=== PATIENT | male | born 1965 | race Caucasian/White ===

== ENCOUNTER 2024-02-22 23:54 | Inpatient (IN) | payer SELFPAY ==
[2024-02-23] VITALS (14 sets, daily range): BP systolic 120–173; BP diastolic 62–114; PULSE 64–107; RESP 14–22; TEMP 36.6–37.4; O2SAT 90–97; BMI 26.6
--- NOTE | 2024-02-23 00:21 | ED_ITS ---
HPI - Abdominal Pain 2 General: Chief Complaint: Abdominal Pain Stated Complaint: abd pain Time Seen by Provider: 02/23/24 00:10 History of Present Illness: 58-year-old male presents with umbilical abdominal pain that has gradually worsened as the day has progressed. He states at noon he had sudden onset of severe umbilical pain. The pain made it feel like he needed to have a bowel movement. He states he took a nap and then woke up with significant worsening of the pain. He did have a bowel movement after that. He has been passing flatus. He denies associated nausea or vomiting. Denies fever. He has not taken anything for the pain. No previous abdominal surgeries. He denies dysuria or hematuria. Associated Symptoms: Reports nausea; Denies change in bowel habits, change in stool character, chills, dysuria, fever(s), hematuria and vomiting Related Data Allergies Allergy/AdvReac Type Severity Reaction Status Date / Time No Known Allergies Allergy Verified 02/23/24 00:03 Review of Systems 2 Const: Denies: fever(s), chills or body aches Card: Denies: chest pain Resp: Denies: dyspnea GI: Reports: abdominal pain and nausea; Denies: vomiting, change in bowel habits or change in stool character : Denies: flank pain, difficulty urinating, dysuria, urinary frequency or hematuria Physical Exam 2 Const: COMMON NORMALS: average body habitus, healthy appearing and well nourished GENERAL APPEARANCE: cooperative and in distress (Appears in pain) HENMT: COMMON NORMALS: normocephalic, atraumatic and Normal external nose present HEAD & SCALP: normocephalic and atraumatic NOSE: Normal external nose present Eye: COMMON NORMALS: Equal, round and reactive pupils present and EOMs intact bilaterally PUPIL: Yes Equal, round and reactive pupils present Neck/C-Spine: COMMON NORMALS: full ROM and supple Chest: COMMONS NORMALS: normal inspection of the chest Resp: COMMON NORMALS: normal respiratory effort and clear to auscultation bilaterally EFFORT & INSPECTION: Yes symmetric chest movement A USCULTATION: clear to auscultation bilaterally Cardio: COMMON NORMALS: regular rate and regular rhythm RATE: regular rate RHYTHM: regular rhythm GI: COMMON NORMALS: negative for Soft to palpation and negative for non-tender INSPECTION: Yes visible herniation (Small umbilical hernia which is not reducible due to patient discomfort) AUSCULTATION: Yes Hypoactive bowel sounds present PALPATION: No Soft to palpation, Yes Firmness to palpation present (GI), Yes Tenderness to palpation present (GI), Yes Guarding due to palpation present (GI), Yes Rigid due to palpation (Diffuse, abdomen is distended) Location: other, Yes Hernia present umbilical and Yes Rebound tenderness present PERCUSSION: abnormal to percussion and tympanic to percussion Extremity: NARRATIVE EXTREMITY EXAM: No swelling or tenderness Course 2 ED course: 58-year-old male who presents with gener alized abdominal pain. He had an IV placed and labs obtained. Is been given 1 L normal saline bolus. He has been given 2 doses of IV Dilaudid with minimal improvement of his pain. On his laboratory valuation, white blood cell count is slightly elevated. His electrolytes are normal. Renal function is normal. His glucose is slightly elevated at 135. Urinalysis is negative for UTI. CT abdomen and pelvis shows acute appendicitis without perforation or abscess formation. He also has right iliac artery occlusion with reconstitution lower in the femoral artery region. Patient's been given IV Zosyn. Discussed with general surgery. Plan for admission to the hospital for surgery in the morning. Reevaluation(s): Reevaluation #1: Pain is slightly improved after IV Dilaudid. Patient is informed of his results. Will keep the patient n.p.o. and admit him Vital Signs: Vital signs: Vital Signs Temperature 98.0 F 02/23/24 00:00 Pulse Rate 64 02/23/24 00:00 Respiratory Rate 22 H 02/23/24 00:00 Blood Pressure 155/84 02/23/24 00:00 Pulse Oximetry 97 02/23/24 00:00 Oxygen Delivery Me thod Room Air 02/23/24 00:00 MDM - Abdominal Pain Medical Decision Making 58-year-old male who presents with diffuse abdominal pain, associated abdominal distention. Abdomen is diffusely tender with rebound and guarding. On examination, it is concerning that he has an probable incarcerated umbilical hernia. He will not allow me to try to reduce it. Will try giving him pain medication and see if it is reducible. Will start on IV, give him IV fluids, Zofran for nausea and Dilaudid for pain. Will obtain labs and plan for CT abdomen and pelvis with contrast. Differential includes incarcerated hernia, bowel obstruction, ischemic bowel, perforated viscus, diverticulitis, colitis, constipation. Lab Data Mild leukocytosis with a white blood cell count of 11.56. Glucose is 135. Electrolytes are normal. Renal function is normal. 02/23/24 00:35 02/23/24 00:35 Labs/Radiology: Radiology Impressions Abdomen/Pelvis CT 02/23/24 00:21 IMPRESSION: 1. Acute appendicitis without evidence of rupture or periappendiceal abscess. 2. Thrombosis of the right common, external, and internal iliac arteries. There is reconstitution of distal internal iliac artery branches and of the common femoral artery. ADDENDUM: 02/23/24 0154 THIS REPORT CONTAINS FINDINGS THAT MAY BE CRITICAL TO PATIENT CARE. The findings were verbally communicated via telephone conference with ISAIAH MAJOR at 1:52 AM SINA on 02/23/2024. The findings were acknowledged and understood. Laboratory Results WBC 11.56 10^3/uL (3.29-11.43) H 02/23/24 00:35 RBC 5.26 10^6/uL (3.85-5.65) 02/23/24 00:35 Hgb 16.20 g/dL (11.27-16.99) 02/23/24 00:35 Hct 49.3 % (37-53) 02/23/24 00:35 MCV 93.7 fl (82-101) 02/23/24 00:35 MCH 30.8 pg (27-33) 02/23/24 00:35 MCHC 32.9 g/dL (30-55) 02/23/24 00:35 RDW 13.1 % (12.1-15.1) 02/23/24 00:35 Plt Count 185 10^3/cmm (157-399) 02/23/24 00:35 MPV 11.4 fL (7.4-10.4) H 02/23/24 00:35 Neut % (Auto) 74.2 % 02/23/24 00:35 Lymph % (Auto) 17.6 % 02/23/24 00:35 [place] % (Auto) 5.5 % 02/23/24 00:35 Eos % (Auto) 1.6 % 02/23/24 00:35 Baso % (Auto) 0.7 % 02/23/24 00:35 Neut # (Auto) 8.57 10^3/uL (1.8-7.7) H 02/23/24 00:35 Lymph # (Auto) 2.0 10^3/uL (0.8-4.8) 02/23/24 00:35 [place] # (Auto) 0.6 10^3/uL (0.2-0.9) 02/23/24 00:35 Eos # (Auto) 0.2 10^3/uL (0.0-0.8) 02/23/24 00:35 Baso # (Auto) 0.1 10^3/uL (0.0-0.1) 02/23/24 00:35 Nucleated RBC % (auto) 0 % 02/23/24 00:35 Nucleated RBCs # 0.0 /100WBC 02/23/24 00:35 Sodium 140 mmol/L (136-145) 02/23/24 00:35 Potassium 4.8 mmol/L (3.5-5.1) 02/23/24 00:35 Chloride 104 mmol/L (98-107) 02/23/24 00:35 Carbon Dioxide 27 mmol/L (22-29) 02/23/24 00:35 Anion Gap 13.8 (5-19) 02/23/24 00:35 BUN 15 mg/dL (6-20) 02/23/24 00:35 Creatinine 1.0 mg/dL (0.7-1.2) 02/23/24 00:35 GFR Calculation 76.7 mL/min (90-130) L 02/23/24 00:35 Glucose 135 mg/dL (65-115) H 02/23/24 00:35 Calculated Osmolality 293 mOsm/kg (285-295) 02/23/24 00:35 Calcium 9.4 mg/dL (8.5-10.5) 02/23/24 00:35 Total Bilirubin 0.6 mg/dL (0.15-1.2) 02/23/24 00:35 AST 20 U/L (0-40) 02/23/24 00:35 ALT 24 U/L (0-41) 02/23/24 00:35 Alkaline Phosphatase 65 U/L (40-130) 02/23/24 00:35 Total Protein 7.1 g/dL (6.6-8.7) 02/23/24 00:35 Albumin 4.1 g/dL (3.5-5.2) 02/23/24 00:35 Globulin 3.0 g/dL (1.3-4.6) 02/23/24 00:35 Lipase 44 U/L (13-60) 02/23/24 00:35 Urine Color Yellow (Yellow) 02/23/24 00:45 Urine Appearance Clear (CLEAR) 02/23/24 00:45 Urine pH 6.5 (5-7) 02/23/24 00:45 Ur Specific [place] 1.052 (1.005-1.030) H 02/23/24 00:45 Urine Protein Negative (Negative) 02/23/24 00:45 Urine Glucose (UA) Negative (Normal) 02/23/24 00:45 Urine Ketones Negative (Negative) 02/23/24 00:45 Urine Blood Negative (Negative) 02/23/24 00:45 Urine Nitrate Negative (Negative) 02/23/24 00:45 Urine Bilirubin Negative (Negative) 02/23/24 00:45 Urine Urobilinogen 1.0 mg/dL (Negative) 02/23/24 00:45 Ur Leukocyte Esterase Negative (Negative) 02/23/24 00:45 Urine RBC 0-2 /hpf (0-2) 02/23/24 00:45 Urine WBC 0-5 /hpf (0-5) 02/23/24 00:45 Ur Squamous Epith Cells 0-5 /hpf (0-5) 02/23/24 00:45 Amorphous Sediment Not Reportable 02/23/24 00:45 Urine Bacteria None seen /hpf (NONE) 02/23/24 00:45 Hyaline Casts 0.81 /lpf 02/23/24 00:45 All radiology interpretation(s) finalized by discharge Discharge Plan Discharge Patient Disposition: Admitted As Inpatient Clinical Impression: Acute appendicitis Condition: Stable Coding Level of Care Code ED Psychiatric Nurse for Veronica Jones
--- NOTE | 2024-02-23 00:21 | CTR_ITS ---
PROCEDURE INFORMATION: Exam: CT Abdomen And Pelvis With Contrast Exam date and time: 02/23/2024 12:48 AM Age: 58 years old Clinical indication: Abdominal pain; Generalized; Additional info: Abdominal pain incarcerated umbilical hernia TECHNIQUE: Imaging protocol: Computed tomography of the abdomen and pelvis with contrast. Radiation optimization: All CT scans at this facility use at least one of these dose optimization techniques: automated exposure control; mA and/or kV adjustment per patient size (includes targeted exams where dose is matched to clinical indication); or iterative reconstruction. Contrast material: OMNI 350; Contrast volume: 100 ml; Contrast route: INTRAVENOUS (IV); COMPARISON: No relevant prior studies available. RADIATION DOSE METRICS: Total DLP (mGy-cm): 654.01 FINDINGS: Diaphragm: Small hiatal hernia. Liver: Liver is unremarkable. Gallbladder and biliary ducts: No calcified gallstones, pericholecystic inflammatory change, or biliary ductal dilation. Pancreas: Pancreas is unremarkable. No main duct dilation. Spleen: Spleen is unremarkable. Adrenal glands: No nodules. Kidneys and ureters: No mass. No hydroureteronephrosis. No urinary tract calculi. Stomach and bowel: No bowel obstruction. Appendix: Dilated appendix measuring up to 14 mm with distal periappendiceal stranding. Intraperitoneal space: No free air. No significant fluid collection. Vasculature: Moderate stenosis at the celiac trunk origin. Thrombosis of the right common, external, and internal iliac arteries. There is reconstitution of distal internal iliac branches. There is reconstitution of the distal external iliac artery with patent, but moderately narrowed common femoral artery. Severe aortoiliac atherosclerosis. No aortic aneurysm. Lymph nodes: No enlarged lymph nodes. Urinary bladder: Unremarkable as visualized. Reproductive: Prostatomegaly. Bones/joints: No acute fracture. Degenerative changes. Soft tissues: Rectus diastasis. Small fat containing umbilical hernia. CT/CT abdomen pelvis w con* [id number] IMPRESSION: 1. Acute appendicitis without evidence of rupture or periappendiceal abscess. 2. Thrombosis of the right common, external, and internal iliac arteries. There is reconstitution of distal internal iliac artery branches and of the common femoral artery.
[2024-02-23] MEDS: sodium chloride 0.9% 1,000 ML 999 ML IV (00:23)
[2024-02-23] MEDS: ondansetron 2 mg/ML SDV 2 mL 4 MG IVP (00:25)
[2024-02-23] MEDS: HYDROmorphone 1 mg/mL INJ 1 mL 0.5 MG IVP ×3 (00:25→02:27)
[2024-02-23] MEDS: iohexol 350 mg/mL 500 mL Btl (per mL) IV (00:53)
[2024-02-23 01:05] LABS: Alanine Aminotransferase 24 U/L (0-41); Albumin Level 4.1 g/dL (3.5-5.2); Alkaline Phosphatase 65 U/L (40-130); Aspartate Amino Transferase 20 U/L (0-40); Blood Urea Nitrogen 15 mg/dL (6-20); Calcium 9.4 mg/dL (8.5-10.5); Carbon Dioxide 27 mmol/L (22-29); Chloride 104 mmol/L (98-107); Creatinine Clr Calc Pharmacy 80.2967; Glomerular Filtration Rate 76.7 mL/min (90-130); Glucose 135 mg/dL (65-115); Lipase 44 U/L (13-60); Osmolality Calculated 293 mOsm/kg (285-295); Sodium 140 mmol/L (136-145); Total Bilirubin 0.6 mg/dL (0.15-1.2); Total Protein 7.1 g/dL (6.6-8.7)
[2024-02-23 01:17] LABS: Basophils # 0.1 10^3/uL (0.0-0.1); Basophils % 0.7 %; Eosinophils # 0.2 10^3/uL (0.0-0.8); Eosinophils % 1.6 %; Hematocrit 49.3 % (37-53); Lymphocytes % 17.6 %; Mean Corpuscular HGB Conc 32.9 g/dL (30-55); Mean Corpuscular Hemoglobin 30.8 pg (27-33); Mean Corpuscular Volume 93.7 fl (82-101); Mean Platelet Volume 11.4 fL (7.4-10.4); Monocytes # 0.6 10^3/uL (0.2-0.9); Monocytes % 5.5 %; Neutrophils # 8.57 10^3/uL (1.8-7.7); Neutrophils % 74.2 %; Nucleated Red Blood Cells % 0 %; Platelet Count 185 10^3/cmm (157-399); Red Blood Count 5.26 10^6/uL (3.85-5.65); Red Cell Distribution Width 13.1 % (12.1-15.1); White Blood Count 11.56 10^3/uL (3.29-11.43)
[2024-02-23 01:18] LABS: Anion Gap 13.8 (5-19); Potassium 4.8 mmol/L (3.5-5.1)
[2024-02-23 01:21] LABS: Bilirubin Urine Negative (Negative); Blood Urine Negative (Negative); Glucose Urine UA Negative (Normal); Ketones Urine Negative (Negative); Leukocyte Esterase Urine Negative (Negative); Nitrate Urine Negative (Negative); Protein Urine Negative (Negative); Urine Appearance Clear (CLEAR); Urine Color Yellow (Yellow); pH Urine 6.5 (5-7)
[2024-02-23 01:26] LABS: Add Urine Microscopic? YES; Bacteria Urine None Seen /hpf; Hyaline Casts Urine 0.81 /lpf; RBC Urine 0-2 /hpf (0-2); Squamous Epithelial Cell Urine 0-5 /hpf (0-5); WBC Urine 0-5 /hpf (0-5)
[2024-02-23 01:42] LABS: Specific Gravity, Urine 1.052 (1.005-1.030)
[2024-02-23] MEDS: piperacillin-tazobactam 4.5 GM in sodium chloride 0.9% (plus) 50 ML IV (01:56)
--- NOTE | 2024-02-23 08:40 | P.ANESASSM_ITS ---
Pre-Anesthetic Assessment Height/Weight: Height 5 ft 7 in Weight 178 lb 4.8 oz Temp Pulse Resp BP Pulse Ox O2 Del Method 98.1 F 82 14 120/70 93 Room Air 02/23/24 04:26 02/23/24 04:26 02/23/24 04:26 02/23/24 04:26 02/23/24 04:02/23/24 04:26 Operation Date: 02/23/24 09:30 Proposed Procedures p Laparoscopic Appendectomy(Not Applicable) - Bruce Lewis DO Last intake: Intake Last Liquid Date 02/22/24 Last Liquid Time 19:00 Last Solid Date 02/22/24 Last Solid Time 19:00 Social Alcohol and Tobacco Exam alert, oriented x 3, clear to auscultation bilaterally and regular rate & rhythm Airway Submandibular: within normal limits Cervical ROM: within normal limits Mallampati: Class III Dentition: full Anesthetic Plan ASA status: 3 Anesthesia: General Other: No prior issues with anesthesia NPO since 7 PM last night Patient has elevated WBCs, afebrile currently Appendicitis noted on CT scan Additionally, patient seen to have thrombosis of the right common, external and iliac arteries Patient states that he has had prior blood clots in the past requiring anticoagulation but is unsure if those were venous or arterial Denies any pain in his leg, extremity appears to be of normal color without mottling METs greater than 4 Plan for GETA Medications/Allergies Home Medications Medication Instructions Recorded Confirmed Last Taken Type No Known Home Medications 02/23/24 02/23/24 Unknown History Allergies Allergy/AdvReac Type Severity Reaction Status Date / Time No Known Allergies Allergy Verified 02/23/24 00:03 Data Anesthesia 02/23/24 00:35 02/23/24 00:35 Short CBC 02/23/24 Range/Units 00:35 WBC 11.56 H (3.29-11.43) 10^3/uL Hgb 16.20 (11.27-16.99) g/dL Hct 49.3 (37-53) % MCV 93.7 (82-101) fl Plt Count 185 (157-399) 10^3/cmm Neut % (Auto) 74.2 % Neut # (Auto) 8.57 H (1.8-7.7) 10^3/uL BMP 02/23/24 00:35 Sodium 140 Potassium 4.8 Chloride 104 Carbon Dioxide 27 BUN 15 Creatinine 1.0 Glucose 135 H Calcium 9.4 Liver Function 02/23/24 Range/Units 00:35 Total Bilirubin 0.6 (0.15-1.2) mg/dL AST 20 (0-40) U/L ALT 24 (0-41) U/L Alkaline Phosphatase 65 (40-130) U/L Albumin 4.1 (3.5-5.2) g/dL Urine 02/23/24 Range/Units 00:45 Urine Color Yellow (Yellow) Urine Appearance Clear (CLEAR) Urine pH 6.5 (5-7) Ur Specific [place] 1.052 H (1.005-1.030) Urine Protein Negative (Negative) Urine Glucose (UA) Negative (Normal) Urine Ketones Negative (Negative) Urine Nitrate Negative (Negative) Urine Bilirubin Negative (Negative) Ur Leukocyte Esterase Negative (Negative) Urine RBC 0-2 (0-2) /hpf Urine WBC 0-5 (0-5) /hpf Cardiac Studies: 2 No Data to Display
--- NOTE | 2024-02-23 09:12 | P.HP_ITS ---
Providers/Chief Complaint 2 Admitting Physician: Bruce Lewis DO Chief Complaint: abd pain History of Present Illness Juan Ashby is a 58 year old male who presented to the hospital for 1 day history of periumbilical abdominal pain. Pain came on suddenly and is worsened by palpation. The pain does not radiate. Nothing seems to make the pain better. He denies any nausea, emesis, diarrhea, constipation, hematochezia and/or melena. CT abdomen pelvis shows acute appendicitis. CT also shows thrombus of the right internal and common iliac arteries. He denies any right lower extremity pain or weakness Review of Systems 2 General: Reports: 10 or more systems reviewed and unremarkable except in HPI and below Medications/Allergies Home Medications Medication Instructions Recorded Confirmed Last Taken Type No Known Home Medications 02/23/24 02/23/24 Unknown History Allergies Allergy/AdvReac Type Severity Reaction Status Date / Time No Known Allergies Allergy Verified 02/23/24 00:03 Vitals/I&O/Wt Last Vital Signs Temp 99.3 F 02/23/24 08:40 Pulse 89 02/23/24 08:40 Resp 18 02/23/24 08:40 BP 149/114 02/23/24 08:40 Pulse Ox 93 02/23/24 08:40 O2 Del Method Room Air 02/23/24 08:40 02/22/24 02/23/24 02/23/24 22:59 06:59 14:59 Intake Total 1050 / 1050 Balance 1050 / 1050 Weight last 48 hrs Weight 178 lb 4.8 oz Weight 170 lb Weight 170 lb Physical Exam 2 Narrative: General : Patient is well developed , no acute distress, oriented x3 Head : Normal cephalic, a-traumatic. Ears : Pinnae and external canal are normal. Hearing is normal. Eyes : PERRLA, Sclera and injection are normal. No conjunctival discharge. Nose : Mucous membranes are without erythema. Throat : buccal mucosa is normal, gums are without significant recession or hypertrophy. Lungs : Equal chest rise bilaterally, no use of accessory muscles, trachea is midline. Cor : Rate and rhythm are normal. Abdomen : Soft, diffusely tender, distended, positive Rovsing's no g/r/m Extremities : No edema, no cyanosis or clubbing, right PT and DP pulses are +1, non-tender to palpation of calves. Upper extremities are normal bilaterally. Back : non-tender to palpation, no CVA tenderness. Neuro : CN II - XII intact, Upper and lower extremities have equal and full strength Data 02/23/24 00:35 02/23/24 00:35 A&P Assessment and plan (1) Acute appendicitis: (2) Arterial thrombosis: Plan Laparoscopic Appendectomy The risks and benefits of the procedure, including but not limited to, bleeding, infection, scar, numbness, pain, damage to surrounding structures, conversion to an open procedure, were explained to the patient. He is understanding of the risks and wishes to proceed. If the appendix is found to be perforated, he will need to stay for 2 to 5 days of IV antibiotics. Attestations 2 Medical Necessity Statement*: Patient needs to stay at least 1 more night to start anticoagulation tomorrow for arterial thrombus, waiting 24 hours after surgery. He may need to stay longer if his appendix is perforated Coding Level of Care Code 95998 Diagnoses Acute appendicitis K35.80 Arterial thrombosis I74.9
[2024-02-23] MEDS: piperacillin-tazobactam 3.375 GM in sodium chloride 0.9% (plus) 50 ML IV ×2 (09:40→17:24)
[2024-02-23] MEDS: lidocaine-epi 2% PF 1:200,000 20 mL SDV XX (09:55)
--- NOTE | 2024-02-23 10:44 | P.OP_ITS ---
Operative Report Date of procedure: February 23, 2024 Pre-op diagnosis: Acute appendicitis Post-op diagnosis: Acute suppurative appendicitis Umbilical hernia Procedure done: Laparoscopic appendectomy Primary repair of umbilical hernia Implants: None Specimens removed/disposition: Appendix Surgeon: Bruce Lewis DO Anesthesia: General and Local Estimated blood loss (mL): 5 Complications: None apparent Brief History: This is a very pleasant 58-year-old gentleman who presented to the hospital with 1 day history of abdominal pain. CT abdomen pelvis showed acute appendicitis. Laparoscopic appendectomy is indicated. The risks and benefits were explained and documented. Procedure: Patient was wheeled into the operative room and placed on the OR table in a supine position. Abdomen was inspected prepped and draped in usual sterile f ashion. Time-out was performed and all present were in agreement. A 15 blade scalp was used to make a stab incision in the left upper quadrant and intra- abdominal insufflation was achieved using a Veress needle. A 1 cm umbilical hernia was identified. Hernia at the after localizing the tissue incisions were made and a 12 millimeter trocar was placed into the umbilicus as well as a 5mm in the right lower quadrant and a 5 mm in the left lower quadrant . The appendix was identified and was inflamed and purulent at the tip. There was some thin purulence in the right colic gutter and base of the appendix. I used the laparoscopic ligature to ligate the mesoappendix at the base. I then used 2 PDS endo-loops to snare the base of the appendix. I then used the laparoscopic ligature to ligate the appendix distally. The appendix was removed from the abdomen using an Endo-Catch bag through the umbilical incision. I thoroughly irrigated the abdomen and suctioned the fluid. I examined the abdomen and no further pathology was identified. Hemostasis was noted. I then primarily repaired the umbilical hernia with a Devin-Kirt and 0 Vicryl suture in a figure of 8 fashion X2. All ports removed. Skin was washed and dried. Incisions were closed with 4 O Vicryl in a subcuticular interrupted fashion. Skin glue was applied. Patient tolerated the procedure well.
--- NOTE | 2024-02-23 11:05 | ANE.PACU2 ---
Inpatient post-anesthesia follow up: Vital signs: Temperature 97.6 F Pulse Rate 51 Respiratory Rate 18 Blood Pressure 148/68 Pulse Oximetry 95 Oxygen Delivery Me thod Room Air Oxygen Flow Rate 8 Fraction of Inspir ed Oxygen
--- NOTE | 2024-02-23 12:31 | P.CONIM_ITS ---
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 Internal medicine consulted for incidental findings of arterial thromboses involving the right common, external, and internal iliac arteries. There is CT reconstitution of the distal internal arterial branches and of the common femoral artery. Patient endorses pain in his calfs after walking long distances. Reports rest improves his pain. Patient seen and evaluated on the medical surgical unit. He does endorse a history of prior blood clots. Endorses a deep vein thrombosis following a prolonged cast due to leg injury around [id number]. He states he was treated with warfarin for approximately 1 year. He denies any other known arterial or venous thromboses. Patient notes that he is an active tobacco smoker. Encourage smoking cessation. Offered nicotine replacement, however patient declined. Family history assessed. Patient states he does not know his family medical history. As such, he is not sure whether or not any of his other biological relatives have had arterial or venous thromboses. Review of Systems 2 Narrative: A complete review of systems was obtained and is negative except as stated in HPI. Medications/Allergies Home Medications Medication Instructions Recorded Confirmed Last Taken Type No Known Home Medications 02/23/24 02/23/24 Unknown History Allergies Allergy/AdvReac Type Severity Reaction Status Date / Time No Known Allergies Allergy Verified 02/23/24 00:03 PFSH Acute 2 PFSH: Medical History Tobacco use disorder Deep vein thrombosis Appendicitis Surgical History (Updated 02/23/24 @ 13:17 by Kem Weaver MD) History of hand surgery History of appendectomy Social History Smoking and tobacco/nicotine status: current every day tobacco/nicotine user Alcohol intake: current Substance/Drug Use: never Vitals/I&O/Wt Last Vital Signs Temp 98.3 F 02/23/24 11:50 Pulse 97 02/23/24 11:50 Resp 20 H 02/23/24 11:50 BP 156/78 02/23/24 11:50 Pulse Ox 91 02/23/24 11:50 O2 Del Method Room Air 02/23/24 11:01 O2 Flow Rate 8 02/23/24 10:45 02/22/24 02/23/24 02/23/24 22:59 06:59 14:59 Intake Total 1050 / 1050 50 / 50 Output Total 5 / 5 Balance 1050 / 1050 45 / 45 Weight last 48 hrs Weight 80.876 kg Weight 77.111 kg Weight 77.111 kg Physical Exam 2 Narrative: General: Patient is awake and alert. Head: Normocephalic. Atraumatic. EOM intact. Neck: No JVD. Cardiovascular: RRR. No gallops. No murmurs. No peripheral edema. Lungs: Clear to auscultation, no use of accessory muscles, no crackles or wheezes. Skin: No jaundice. No rashes. Abdomen: Hypoactive bowel sounds. Abdomen soft. Extremities: No cyanosis or clubbing. Musculoskeletal: No swollen or erythematous joints. Neurological: Moves all 4 extremities. No myoclonus. Data 02/23/24 00:35 02/23/24 00:35 A&P Assessment and plan (1) Arterial thrombosis: CT with incidentally found arterial thrombosis of the right common, external, and internal iliac arteries with distal reconstitution Reconstitution suggestive of longstanding pathology Given history of prior suspected provoked DVT, does raise possibility of underlying hypercoagulable state Also within the differential is chronic atherosclerotic disease producing severe stenosis ultimately leading to occlusion through progressive narrowing of the arteries Proceed to check for underlying hypercoagulable state by assessing protein C, protein S, Antithrombin, prothrombin gene mutation evaluation, antiphospholipid antibodies, PT/PTT Check lipid levels Plan to start patient on therapeutic anticoagulation with DOAC 24 hours after surgery if okay with surgeon Will plan for outpatient hematology referral Given radiographic findings and symptoms of claudication, patient would also benefit from outpatient vascular surgery evaluation (2) Acute appendicitis: Per primary (3) Tobacco use disorder: Patient would benefit from cessation, cessation counseling discussed for 3 minutes Declined nicotine replacement therapy Plan Thank you for this consultation. Internal medicine will continue to follow. Consult Attestations 2 Medical Necessity Statement: Per primary Coding Level of Care Code Acute Code for [facility] Diagnoses Arterial thrombosis I74.9 Acute appendicitis K35.80 Tobacco use disorder F17.200
[2024-02-23 14:26] LABS: Chol HDL Ratio 4.39 mg/dL (1.0-5.00); Cholesterol 158 mg/dL (0-200); HDL Cholesterol 36 mg/dL (60-100); LDL Cholesterol Calculated 107 mg/dL (50-129); LDL HDL Ratio 2.97 RATIO (0.00-3.22); Triglycerides 76 mg/dL (0-150)
[2024-02-23 14:37] LABS: INR 1.06 (0.8-1.2)
[2024-02-23 14:40] LABS: D Dimer 2.65 ug/mLFEU (0-0.59)
[2024-02-24] MEDS: piperacillin-tazobactam 3.375 GM in sodium chloride 0.9% (plus) 50 ML IV ×2 (01:03→08:56)
[2024-02-24] MEDS: HYDROcodone-acetaminophen 7.5-325 mg Tablet 1 TAB PO (01:06)
[2024-02-24 04:00] VITALS: BP 145/63; PULSE 55; RESP 15; TEMP 36.6; O2SAT 93
[2024-02-24 07:58] VITALS: BP 148/68; PULSE 51; RESP 18; TEMP 36.4; O2SAT 95
--- NOTE | 2024-02-24 08:54 | P.PN_ITS ---
Subjective 2 Subjective: Patient awake and alert. He is ambulatory around the room. He denies any significant abdominal pains. We again discussed his incidentally found arterial thromboses concerning for blood clot with possibly superimposed atherosclerotic disease. We discussed referral to both hematology and vascular surgery clinic. His hypercoagulable workup is pending and will likely not return for about a week. He is agreeable to see hematology clinic to follow-up these results. He is also agreeable to vascular surgery referral to [facility], no preference. He is agreeable to [facility] for further evaluation given he does have symptoms consistent with claudication in his right leg. He may benefit from revascularization eventually. Otherwise he denies other new complaints. Anticipating possible discharge today from his general surgeon. Medications: Reviewed: Yes Vitals/I&O/Wt Last Vital Signs Temp 97.6 F 02/24/24 07:58 Pulse 51 L 02/24/24 07:58 Resp 18 02/24/24 07:58 BP 148/68 02/24/24 07:58 Pulse Ox 95 02/24/24 07:58 O2 Del Method Room Air 02/24/24 07:58 O2 Flow Rate 8 02/23/24 10:45 02/23/24 02/24/24 02/24/24 22:59 06:59 14:59 Intake Total 290 / 460 50 / 510 480 / 480 Balance 290 / 455 50 / 505 480 / 480 Weight last 48 hrs Weight 78.29 kg Weight 80.876 kg Weight 77.111 kg Weight 77.111 kg Physical Exam 2 Narrative: General: Patient is awake and alert. Pleasant. Ambulatory. Head: Normocephalic. Atraumatic. EOM intact. Neck: No JVD. Cardiovascular: RRR. No gallops. No murmurs. No peripheral edema. Lungs: Clear to auscultation, no use of accessory muscles, no crackles or wheezes. Skin: No jaundice. No rashes. Abdomen: Hypoactive bowel sounds. Abdomen soft. Extremities: No cyanosis or clubbing. Musculoskeletal: No swollen or erythematous joints. Neurological: Moves all 4 extremities. No myoclonus. Data 02/23/24 00:35 02/23/24 00:35 A&P Assessment and plan (1) Arterial thrombosis: Recommend systemic anticoagulation with apixaban Prescription for starter pack for apixaban sent to pharmacy Prescription for aspirin enteric-coated 81 mg daily sent to pharmacy ASCVD risk score of 15.9%, recommending moderate to high intensity statin, atorvastatin prescription sent to pharmacy Discussed with nursing, will provide coupon for first month of apixaban Amb[place] [facility] [place] to follow-up hypercoagulable workup requested Ambulatory referral to [facility] vascular surgery clinic requested to evaluate for peripheral arterial disease management (2) Acute appendicitis: Per primary (3) Tobacco use disorder: Would benefit from cessation Plan Thank you for this consultation. Attestations 2 Medical Necessity Statement*: Per primary. Coding Level of Care Code Acute Code for [facility] Fwd Diagnoses Arterial thrombosis I74.9 Acute appendicitis K35.80 Tobacco use disorder F17.200
--- NOTE | 2024-02-24 09:42 | P.DS_ITS ---
Discharge Providers Date of Admission: 02/23/24 02:37 Date of Discharge: February 24, 2024 Attending Provider at Admission: Bruce Lewis DO Attending Provider at Discharge: Bruce Lewis DO Consults: Internal medicine Diagnoses at Discharge Discharge Diagnosis (1) Arterial thrombosis: Status: Acute (2) Acute appendicitis: Status: Acute (3) Tobacco use disorder: Status: Acute Reason for Visit Reason for Visit: abd pain Hospital Course Hospital Course This is a very pleasant 58-year-old gentleman who presented to the hospital with abdominal pain. He was diagnosed with acute appendicitis and a thrombus of his right iliac artery. He underwent laparoscopic appendectomy as well as primary repair of umbilical hernia and did well postoperatively. 24 hours after surgery he was started on Eliquis. He was discharged home in good condition with follow-up with myself and hematology Physical Exam Narrative: General : Patient is well developed , no acute distress, oriented x3 Head : Normal cephalic, a-traumatic. Ears : Pinnae and external canal are normal. Hearing is normal. Eyes : PERRLA, Sclera and injection are normal. No conjunctival discharge. Nose : Mucous membranes are without erythema. Throat : buccal mucosa is normal, gums are without significant recession or hypertrophy. Lungs : Equal chest rise bilaterally, no use of accessory muscles, trachea is midline. Cor : Rate and rhythm are normal. Abdomen : Soft, ND, appropriately tender no g/r/m Extremities : No edema, no cyanosis or clubbing, dorsalis pedis pulses are present bilaterally, non-tender to palpation of calves. Upper extremities are normal bilaterally. Back : non-tender to palpation, no CVA tenderness. Neuro : CN II - XII intact, Upper and lower extremities have equal and full strength Discharge Data Studies Completed and Pending Completed Studies During Hospitalization Category Date Time Status CT abdomen pelvis w con* [id number] Stat Cat Scan 02/23/24 00:21 Completed Pending at discharge Category Date Time Status Antiphospholipid Antibody [place] Routine Lab 02/23/24 13:59 Received Antithrombin III Activity Routine Lab 02/23/24 13:59 Received PROTEIN C, ACTIVITY Routine Lab 02/23/24 13:59 Received PROTEIN S, ACTIVITY Routine Lab 02/23/24 13:59 Received PROTHROMBIN GENE [PROTHROMBIN (FACTOR II) [id number]] Lab 02/23/24 13:59 Received Routine Pathology: Surgical [PTH] Routine Pth 02/23/24 10:24 Ordered Radiology Impressions Abdomen/Pelvis CT 02/23/24 00:21 IMPRESSION: 1. Acute appendicitis without evidence of rupture or periappendiceal abscess. 2. Thrombosis of the right common, external, and internal iliac arteries. There is reconstitution of distal internal iliac artery branches and of the common femoral artery. ADDENDUM: 02/23/24 0154 THIS REPORT CONTAINS FINDINGS THAT MAY BE CRITICAL TO PATIENT CARE. The findings were verbally communicated via telephone conference with ISAIAH MAJOR at 1:52 AM CDT on 02/23/2024. The findings were acknowledged and understood. Laboratory Results WBC 11.56 10^3/uL (3.29-11.43) H 02/23/24 00:35 RBC 5.26 10^6/uL (3.85-5.65) 02/23/24 00:35 Hgb 16.20 g/dL (11.27-16.99) 02/23/24 00:35 Hct 49.3 % (37-53) 02/23/24 00:35 MCV 93.7 fl (82-101) 02/23/24 00:35 MCH 30.8 pg (27-33) 02/23/24 00:35 MCHC 32.9 g/dL (30-55) 02/23/24 00:35 RDW 13.1 % (12.1-15.1) 02/23/24 00:35 Plt Count 185 10^3/cmm (157-399) 02/23/24 00:35 MPV 11.4 fL (7.4-10.4) H 02/23/24 00:35 Neut % (Auto) 74.2 % 02/23/24 00:35 Lymph % (Auto) 17.6 % 02/23/24 00:35 [place] % (Auto) 5.5 % 02/23/24 00:35 Eos % (Auto) 1.6 % 02/23/24 00:35 Baso % (Auto) 0.7 % 02/23/24 00:35 Neut # (Auto) 8.57 10^3/uL (1.8-7.7) H 02/23/24 00:35 Lymph # (Auto) 2.0 10^3/uL (0.8-4.8) 02/23/24 00:35 [place] # (Auto) 0.6 10^3/uL (0.2-0.9) 02/23/24 00:35 Eos # (Auto) 0.2 10^3/uL (0.0-0.8) 02/23/24 00:35 Baso # (Auto) 0.1 10^3/uL (0.0-0.1) 02/23/24 00:35 Nucleated RBC % (auto) 0 % 02/23/24 00:35 Nucleated RBCs # 0.0 /100WBC 02/23/24 00:35 PT 14.10 SECONDS (12.1-14.9) 02/23/24 13:59 INR 1.06 (0.8-1.2) 02/23/24 13:59 APTT 28.0 SECONDS (23.9-36.7) 02/23/24 13:59 D-Dimer 2.65 ug/mLFEU (0-0.59) H 02/23/24 13:59 Sodium 140 mmol/L (136-145) 02/23/24 00:35 Potassium 4.8 mmol/L (3.5-5.1) 02/23/24 00:35 Chloride 104 mmol/L (98-107) 02/23/24 00:35 Carbon Dioxide 27 mmol/L (22-29) 02/23/24 00:35 Anion Gap 13.8 (5-19) 02/23/24 00:35 BUN 15 mg/dL (6-20) 02/23/24 00:35 Creatinine 1.0 mg/dL (0.7-1.2) 02/23/24 00:35 GFR Calculation 76.7 mL/min (90-130) L 02/23/24 00:35 Glucose 135 mg/dL (65-115) H 02/23/24 00:35 Calculated Osmolality 293 mOsm/kg (285-295) 02/23/24 00:35 Calcium 9.4 mg/dL (8.5-10.5) 02/23/24 00:35 Total Bilirubin 0.6 mg/dL (0.15-1.2) 02/23/24 00:35 AST 20 U/L (0-40) 02/23/24 00:35 ALT 24 U/L (0-41) 02/23/24 00:35 Alkaline Phosphatase 65 U/L (40-130) 02/23/24 00:35 Total Protein 7.1 g/dL (6.6-8.7) 02/23/24 00:35 Albumin 4.1 g/dL (3.5-5.2) 02/23/24 00:35 Globulin 3.0 g/dL (1.3-4.6) 02/23/24 00:35 Triglycerides 76 mg/dL (0-150) 02/23/24 13:59 Cholesterol 158 mg/dL (0-200) 02/23/24 13:59 LDL Cholesterol, Calc 107 mg/dL (50-129) 02/23/24 13:59 HDL Cholesterol 36 mg/dL (60-100) L 02/23/24 13:59 LDL/HDL Ratio 2.97 RATIO (0.00-3.22) 02/23/24 13:59 Cholesterol/HDL Ratio 4.39 mg/dL (1.0-5.00) 02/23/24 13:59 Lipase 44 U/L (13-60) 02/23/24 00:35 Urine Color Yellow (Yellow) 02/23/24 00:45 Urine Appearance Clear (CLEAR) 02/23/24 00:45 Urine pH 6.5 (5-7) 02/23/24 00:45 Ur Specific [place] 1.052 (1.005-1.030) H 02/23/24 00:45 Urine Protein Negative (Negative) 02/23/24 00:45 Urine Glucose (UA) Negative (Normal) 02/23/24 00:45 Urine Ketones Negative (Negative) 02/23/24 00:45 Urine Blood Negative (Negative) 02/23/24 00:45 Urine Nitrate Negative (Negative) 02/23/24 00:45 Urine Bilirubin Negative (Negative) 02/23/24 00:45 Urine Urobilinogen 1.0 mg/dL (Negative) 02/23/24 00:45 Ur Leukocyte Esterase Negative (Negative) 02/23/24 00:45 Urine RBC 0-2 /hpf (0-2) 02/23/24 00:45 Urine WBC 0-5 /hpf (0-5) 02/23/24 00:45 Ur Squamous Epith Cells 0-5 /hpf (0-5) 02/23/24 00:45 Amorphous Sediment Not Reportable 02/23/24 00:45 Urine Bacteria None seen /hpf (NONE) 02/23/24 00:45 Hyaline Casts 0.81 /lpf 02/23/24 00:45 Procedures Performed Laparoscopic appendectomy Vitals Last Vital Signs Temp 97.6 F 02/24/24 07:58 Pulse 51 L 02/24/24 07:58 Resp 18 02/24/24 07:58 BP 148/68 02/24/24 07:58 Pulse Ox 95 02/24/24 07:58 O2 Del Method Room Air 02/24/24 07:58 O2 Flow Rate 8 02/23/24 10:45 Discharge Plan Discharge Patient Disposition: Home Condition: Stable Prescriptions: New apixaban 5 mg (74 tabs) tablets,dose pack See Rx Instructions .ROUTE .COMPLEX Qty: 74 0RF Rx Instructions: orally per package directions Adult Aspirin Regimen 81 mg tablet,delayed release (DR/EC) 81 mg PO DAILY Qty: 30 0RF atorvastatin 40 mg tablet 40 mg PO QPM Qty: 30 0RF hydrocodone-acetaminophen 7.5-325 mg tablet 1 tab PO Q6H PRN (Reason: pain) Qty: 20 0RF Colace 100 mg capsule 100 mg PO BID Qty: 14 0RF Miralax 17 gram/dose powder 17 g PO DAILY 7 Days Qty: 119 0RF Discharge Orders: Discharge Order (Routine); Ordered 02/24/24 Ordered By: Bruce Lewis Referrals: [facility] [Provider Group] - 2 weeks (Ambulatory referral to hematology clinic for incidentally found arterial thromboses. Evaluate for hypercoagulable disorder. Hypercoagulable workup is pending at time of referral.) [facility] [Outside] - 3 weeks (Ambulatory referral to vascular surgery to evaluate and treat right sided common, external, and internal iliac thrombosis with claudication symptoms.) Bruce Lewis DO [Physician] - 2 weeks Discharge Diet: Advance as tolerated Discharge Activity: Resume usual activity Patient Instructions: Acute Wound Care (DC), Opioid Safety, Post Anesthesia Care Activity Restrictions/Additional Instructions: Do not soak incisions underwater for 2 weeks. Shower regularly. Discharge Attestations Time Spent in Discharge Care*: less than 30 min Quality Metrics Clinical Quality Measures [ No reported AMI, CVA or VTE this stay] Coding Level of Care Code Acute Code for [facility] Fwd Diagnoses Arterial thrombosis I74.9 Acute appendicitis K35.80 Tobacco use disorder F17.200
[2024-02-24 11:36] VITALS: BP 137/75; PULSE 64; RESP 18; TEMP 36.4; O2SAT 91
== END 2024-02-24 13:15 | disposition home or self-care (01) | DRG 398 ==
LOC: ER 02-23 02:02 → MEDSURG 02-23 02:38
PROVIDERS: Internal Medicine; Admitting Provider Surgery; Emergency Provider Emergency Medicine; Visit Provider Surgery
PROC: 0DTJ4ZZ Resection of Appendix, Percutaneous Endoscopic Approach (ICD-10-PCS; CPT 44970; principal; 2024-02-23 09:20)
DX: K35.80 Unspecified acute appendicitis (principal); I74.5 Embolism and thrombosis of iliac artery; K42.9 Umbilical hernia without obstruction or gangrene; F17.200 Nicotine dependence, unspecified, uncomplicated
CPT/HCPCS: 36415; 74177; 80053; 80061; 81001; 83516; 83690; 85025; 85210; 85300; 85303; 85306; 85378; 85610; 85730; 86146; 86147; 88304; J1100; J1170; J2250; J2405; J2543; J2704; J2710; J3010; J3490; J7030

== ENCOUNTER 2024-03-19 15:22 | Oncology outpatient (recurring) (ONCR) | payer SELFPAY | END 2024-03-27 23:59 | disposition home or self-care (01) | PROVIDERS: Visit Provider Internal Medicine Hematology & Oncology | DX: I82.491 Acute embolism and thrombosis of other specified deep vein of right lower extremity (principal) ==

== ENCOUNTER 2024-07-23 12:44 | Oncology outpatient (recurring) (ONCR) | payer OTHER, SELFPAY ==
[2024-07-23 13:11] LABS: Basophils # 0.1 10^3/uL (0.0-0.1); Basophils % 1.3 %; Eosinophils # 0.3 10^3/uL (0.0-0.8); Eosinophils % 3.7 %; Hematocrit 46.3 % (37-53); Lymphocytes # 1.9 10^3/uL (0.8-4.8); Lymphocytes % 24.3 %; Mean Corpuscular HGB Conc 33.5 g/dL (30-55); Mean Corpuscular Hemoglobin 30.8 pg (27-33); Mean Corpuscular Volume 91.9 fl (82-101); Monocytes # 0.6 10^3/uL (0.2-0.9); Monocytes % 7.8 %; Neutrophils # 4.95 10^3/uL (1.8-7.7); Neutrophils % 62.5 %; Nucleated Red Blood Cells % 0 %; Platelet Count 184 10^3/cmm (157-399); Red Blood Count 5.04 10^6/uL (3.85-5.65); Red Cell Distribution Width 12.9 % (12.1-15.1); White Blood Count 7.91 10^3/uL (3.29-11.43)
[2024-07-23 13:27] LABS: D Dimer 0.49 ug/mLFEU (0-0.59)
[2024-07-23 13:30] LABS: Alanine Aminotransferase 36 U/L (0-41); Albumin Level 4.1 g/dL (3.5-5.2); Alkaline Phosphatase 72 U/L (40-130); Anion Gap 11.9 (5-19); Aspartate Amino Transferase 24 U/L (0-40); Blood Urea Nitrogen 17 mg/dL (6-20); Calcium 9.1 mg/dL (8.5-10.5); Carbon Dioxide 28 mmol/L (22-29); Chloride 103 mmol/L (98-107); Globulin 2.8 g/dL (1.3-4.6); Glomerular Filtration Rate 86.4 mL/min (90-130); Glucose 113 mg/dL (65-115); Lactate Dehydrogenase 172 U/L (135-225); Osmolality Calculated 290 mOsm/kg (285-295); Potassium 3.9 mmol/L (3.5-5.1); Sodium 139 mmol/L (136-145); Total Bilirubin 0.7 mg/dL (0.15-1.2); Total Protein 6.9 g/dL (6.6-8.7)
== END 2024-07-25 23:59 | disposition home or self-care (01) ==
PROVIDERS: PCP Nurse Practitioner Family; Visit Provider Internal Medicine Hematology & Oncology
DX: I82.491 Acute embolism and thrombosis of other specified deep vein of right lower extremity (principal)
CPT/HCPCS: 36415; 80053; 83615; 85025; 85378

== ENCOUNTER 2024-10-23 10:30 | Oncology outpatient (recurring) (ONCR) | payer OTHER, SELFPAY ==
[2024-10-22 14:47] LABS: Basophils # 0.1 10^3/uL (0.0-0.1); Basophils % 1.1 %; Eosinophils # 0.2 10^3/uL (0.0-0.8); Eosinophils % 3.3 %; Lymphocytes # 1.8 10^3/uL (0.8-4.8); Lymphocytes % 25.5 %; Mean Corpuscular HGB Conc 33.3 g/dL (30-55); Mean Corpuscular Hemoglobin 31.3 pg (27-33); Mean Corpuscular Volume 94.2 fl (82-101); Monocytes # 0.5 10^3/uL (0.2-0.9); Monocytes % 6.6 %; Neutrophils # 4.45 10^3/uL (1.8-7.7); Neutrophils % 62.9 %; Nucleated Red Blood Cells % 0 %; Platelet Count 194 10^3/cmm (157-399); Red Cell Distribution Width 13.5 % (12.1-15.1); White Blood Count 7.07 10^3/uL (3.29-11.43)
[2024-10-22 14:52] LABS: Erythrocyte Sedimentation Rate 15 mm/hr (0-10)
[2024-10-22 15:06] LABS: Alanine Aminotransferase 33 U/L (0-41); Alkaline Phosphatase 63 U/L (40-130); Anion Gap 13.9 (5-19); Aspartate Amino Transferase 21 U/L (0-40); Blood Urea Nitrogen 14 mg/dL (6-20); Calcium 9.9 mg/dL (8.5-10.5); Carbon Dioxide 28 mmol/L (22-29); Chloride 100 mmol/L (98-107); Globulin 2.9 g/dL (1.3-4.6); Glomerular Filtration Rate 68.5 mL/min (90-130); Glucose 107 mg/dL (65-115); Lactate Dehydrogenase 141 U/L (135-225); Osmolality Calculated 287 mOsm/kg (285-295); Potassium 3.9 mmol/L (3.5-5.1); Sodium 138 mmol/L (136-145); Total Bilirubin 0.8 mg/dL (0.15-1.2); Total Protein 6.9 g/dL (6.6-8.7)
[2024-10-22 15:19] LABS: D Dimer 0.34 ug/mLFEU (0-0.59)
[2024-10-23 07:49] LABS: PROTEIN, TOTAL 6.9 g/dL (6.1-8.1)
[2024-10-23 13:18] LABS: Leukemia Profile (BBPL) See Report
[2024-10-24 21:54] LABS: PTT-LA-Screen 46 sec (< OR = 40)
[2024-10-25] LABS: Lupus DRVVT Confirm NEGATIVE (NEGATIVE); Lupus Hexagonal Phas Confirm NEGATIVE (NEGATIVE)
[2024-10-26 15:05] LABS: Immunofixation Serum Normal pattern.
[2024-10-28 15:34] LABS: ALBUMIN 4.2 g/dL (3.8-4.8); ALPHA 1 GLOBULIN 0.3 g/dL (0.2-0.3); ALPHA 2 GLOBULIN 0.8 g/dL (0.5-0.9); BETA 1 GLOBULIN 0.5 g/dL (0.4-0.6); BETA 2 GLOBULIN 0.5 g/dL (0.2-0.5); GAMMA GLOBULIN 0.7 g/dL (0.8-1.7)
== END 2024-10-25 23:59 | disposition home or self-care (01) ==
PROVIDERS: PCP Nurse Practitioner Family; Visit Provider Internal Medicine
DX: Z53.9 Procedure and treatment not carried out, unspecified reason (principal); I82.491 Acute embolism and thrombosis of other specified deep vein of right lower extremity; I74.9 Embolism and thrombosis of unspecified artery
CPT/HCPCS: 36415; 80053; 83615; 84155; 84165; 85025; 85378; 85613; 85651; 85730; 86140; 86334; 88184; 88185

== ENCOUNTER 2024-10-29 12:57 | Oncology outpatient (recurring) (ONCR) | payer OTHER, SELFPAY ==
[2024-11-02 00:10] LABS: PROTEIN C, ACTIVITY 74 % normal (70-180)
[2024-11-03 14:50] LABS: Protein C Antigen 106 % normal (70-140)
[2024-11-05 05:42] LABS: PNH Clinical Type NOT PROVIDED; PNH Number of Markers 8; PNH Specimen Type PERIPHERAL BLOOD; PNH Viability % 94 %
== END 2024-11-24 23:59 | disposition home or self-care (01) ==
PROVIDERS: PCP Nurse Practitioner Family; Visit Provider Internal Medicine
DX: I82.491 Acute embolism and thrombosis of other specified deep vein of right lower extremity (principal)
CPT/HCPCS: 36415; 85302; 85303; 88184; 88185

== ENCOUNTER 2024-11-06 14:08 | Outpatient (CLI) | payer OTHER, SELFPAY ==
--- NOTE | 2024-11-06 14:19 | XR_ITS ---
WS: [id number] AP pelvis, both hips 2 views, 11/06/2024 Clinical Data: M25.50 - Pain in unspecified joint Comparison: None. Findings: There are no fractures or dislocations. The pubic symphysis and SI joints are normal. The hips show no erosion, sclerosis, narrowing, fragmentation of the femoral heads or loss of normal spherical shape. The soft tissues are normal. XR/XR hip BI 3-4V wo/w pel [id number] Impression: Negative pelvis and both hips.
== END 2024-11-06 14:09 | disposition home or self-care (01) ==
PROVIDERS: PCP Nurse Practitioner Family; Visit Provider Nurse Practitioner Family
DX: M25.50 Pain in unspecified joint (principal); M25.551 Pain in right hip; M25.552 Pain in left hip
CPT/HCPCS: 73522

== ENCOUNTER 2025-02-11 15:55 | Oncology outpatient (recurring) (ONCR) | payer OTHER, SELFPAY ==
[2025-02-04 12:07] LABS: Hematocrit 44.6 % (37-53); Hemoglobin 14.70 g/dL (11.27-16.99); Mean Corpuscular HGB Conc 33.0 g/dL (30-55); Mean Corpuscular Hemoglobin 30.5 pg (27-33); Mean Corpuscular Volume 92.5 fl (82-101); Nucleated Red Blood Cells % 0 %; Platelet Count 176 10^3/cmm (157-399); Red Blood Count 4.82 10^6/uL (3.85-5.65); White Blood Count 7.31 10^3/uL (3.29-11.43)
[2025-02-04 12:25] LABS: Alanine Aminotransferase 32 U/L (0-41); Albumin Level 4.1 g/dL (3.5-5.2); Alkaline Phosphatase 59 U/L (40-130); Anion Gap 13.0 (5-19); Aspartate Amino Transferase 22 U/L (0-40); Blood Urea Nitrogen 16 mg/dL (6-20); Calcium 9.3 mg/dL (8.5-10.5); Carbon Dioxide 28 mmol/L (22-29); Chloride 100 mmol/L (98-107); Globulin 2.9 g/dL (1.3-4.6); Glucose 106 mg/dL (65-115); Osmolality Calculated 286 mOsm/kg (285-295); Potassium 4.0 mmol/L (3.5-5.1); Sodium 137 mmol/L (136-145); Total Protein 7.0 g/dL (6.6-8.7)
[2025-02-07 20:01] LABS: PROTEIN C, ACTIVITY 91 % normal (70-180)
== END 2025-02-24 23:59 | disposition home or self-care (01) ==
PROVIDERS: PCP Nurse Practitioner Family; Visit Provider Internal Medicine
DX: Z53.9 Procedure and treatment not carried out, unspecified reason (principal)
CPT/HCPCS: 36415; 80053; 83615; 85025; 85303

== ENCOUNTER 2025-05-27 14:35 | Oncology outpatient (recurring) (ONCR) | payer OTHER, SELFPAY ==
[2025-05-19 14:58] LABS: Hematocrit 44.7 % (37-53); Hemoglobin 14.70 g/dL (11.27-16.99); Mean Corpuscular HGB Conc 32.9 g/dL (30-55); Mean Corpuscular Hemoglobin 30.5 pg (27-33); Mean Corpuscular Volume 92.7 fl (82-101); Nucleated Red Blood Cells % 0 %; Platelet Count 190 10^3/cmm (157-399); Red Blood Count 4.82 10^6/uL (3.85-5.65); White Blood Count 9.28 10^3/uL (3.29-11.43)
[2025-05-19 15:20] LABS: Alanine Aminotransferase 24 U/L (0-41); Albumin Level 4.4 g/dL (3.5-5.2); Alkaline Phosphatase 60 U/L (40-130); Anion Gap 14.3 (5-19); Aspartate Amino Transferase 18 U/L (0-40); Blood Urea Nitrogen 12 mg/dL (8-23); Calcium 9.4 mg/dL (8.5-10.5); Carbon Dioxide 27 mmol/L (22-29); Chloride 102 mmol/L (98-107); Globulin 2.6 g/dL (1.3-4.6); Glucose 101 mg/dL (65-115); Osmolality Calculated 288 mOsm/kg (285-295); Potassium 4.3 mmol/L (3.5-5.1); Sodium 139 mmol/L (136-145); Total Protein 7.0 g/dL (6.6-8.7)
== END 2025-05-27 23:59 | disposition home or self-care (01) ==
PROVIDERS: Nurse Practitioner; PCP Nurse Practitioner Family; Visit Provider Internal Medicine
DX: Z53.9 Procedure and treatment not carried out, unspecified reason (principal)
CPT/HCPCS: 36415; 80053; 85025; 85302